=== PATIENT | female | born 1985 | race Caucasian/White ===

== ENCOUNTER → 2017-01-01 | Outpatient (CLI) | payer OTHER ==
[~2017-01-01] VITALS: Ht 160 cm; Wt 72.1 kg
[~2017-01-01] MED LIST: LO LOESTRIN FE1 EACH PO; NAPROSYN500 MG PO; ZANAFLEX4 MG PO
--- NOTE | ~2017-01-01 | HPC ---
[facility] [address] [place] [address] PAIN MANAGEMENT CONSULTATION Name: LOU ESPARZA Room #: REG ASHELY Rigoberto.#: [id number] Admission: 01/01/17 Attend Phys: Jonathon Bishop DO Discharge: Date of : 85 Report #: [id number] THIS REPORT FOR: //name// CC: Jeannine Bishop DATE OF SERVICE: 01/01/2017 The patient is a delightful 31-year-old female being treated for symptomatic right SI joint dysfunction, lumbar radiculopathy status post decompressive laminectomy by history. Last seen in the pain clinic back in September. We did a right SI joint injection under fluoroscopy and referred the patient to physical therapy. The patient returns to pain clinic today noting physical therapy is quite helpful and the injection afforded excellent relief (75% for 2 months). The patient notes pain has gradually begun to recur in the right low back, exacerbated with sitting too long. She got some relief with massage and physical therapy. Denies any radicular component of pain. PHYSICAL EXAMINATION: Shows a 31-year-old female. BMI is 28.2 kilograms per meter squared. Vital signs are stable as noted in the EMR. Rises from chair easily. Gait is tandem. Lower extremity strength is preserved. Tender over the right SI with positive Marixa test. Also has a little pain with resistance to right leg external rotation (positive piriformis syndrome). The patient notes positive Gaenslen test and positive pelvic distraction test. ASSESSMENT: 1. Symptomatic sacroiliac joint dysfunction (right) by clinical exam and history, prior 75% relief for several months with an sacroiliac joint injection. 2. Piriformis syndrome on the right. 3. Status post lumbar decompressive laminectomy, radicular symptoms are quiescent at present. RECOMMENDATIONS: 1. Continue Naprosyn over the counter. 2. We will seek authorization for repeat right SI joint injection under fluoroscopy. 3. Continue physical therapy. 4. If this does not afford adequate relief, we will refer to Dr. Darrell Francisco for consideration for percutaneous stabilization of that right SI joint. Thank you for allowing me to participate in the patient's care, we will seek [address] [address] PAIN MANAGEMENT CONSULTATION Name: LOU ESPARZA CRAIG Room #: REG ASHELY Roger#: [id number] Admission: 01/01/17 Attend Phys: Jonathon Bishop DO Discharge: Date of : 85 Report #: [id number] authorization for right SI joint injection under fluoroscopy at earliest possible date. By: [id number] Jonathon Bishop DO /nt
[2017-01-01 10:38] VITALS: BP 122/75
== END | disposition home or self-care (01) ==
LOC: PAIN 10-06 07:04
DX: M53.3 Sacrococcygeal disorders, not elsewhere classified (principal); M54.16 Radiculopathy, lumbar region; Z98.890 Other specified postprocedural states

== ENCOUNTER → 2017-01-26 | Outpatient (CLI) | payer OTHER ==
[~2017-01-26] VITALS: Ht 160 cm; Wt 72.2 kg
[~2017-01-26] MED LIST changes: +TRAMADOL 50 MG50 MG PO
[2017-01-26 08:41] VITALS: BP 120/78
== END | disposition home or self-care (01) ==
LOC: PAIN 06:32
DX: M53.3 Sacrococcygeal disorders, not elsewhere classified (principal); M47.897 Other spondylosis, lumbosacral region; G57.01 Lesion of sciatic nerve, right lower limb; Z98.890 Other specified postprocedural states